=== PATIENT | male | born 1985 | race African-American/Black ===

== ENCOUNTER 2017-11-22 09:45 | Emergency (ER) | payer SELFPAY ==
[~2017-11-22 09:45] MED LIST: Gentamicin Ophth Soln 0.3% 5 ml Bottle R EYE SCH
[2017-11-22] MEDS ORDERED: Proparacaine 0.5% Opth 15 ML BOT ONE (10:23)
[2017-11-22] MEDS ORDERED: Fluorescein Opthalmic Strip ONE (10:23)
== END 2017-11-22 11:42 | disposition home or self-care (01) ==
LOC: ERS 09:45
DX: S05.01XA Injury of conjunctiva and corneal abrasion without foreign body, right eye, initial encounter (principal); X58.XXXA Exposure to other specified factors, initial encounter
CPT/HCPCS: 99283

== ENCOUNTER 2020-03-19 16:39 | Emergency (ER) | payer SELFPAY ==
[2020-03-19 17:32] LABS: #Eosinphils 0.1 thou/uL (0.0-0.7); #Lymphocytes 1.2 thou/uL (1.20-3.40); #Monocytes 0.4 thou/uL (0.11-0.59); #Neutrophils 2.5 thou/uL (1.40-6.50); %Basophils 0.5 % (0.0-1.0); %Eosinophils 1.3 % (0.0-10.0); %Lymphocytes 28.2 % (21.0-51.0); %Monocytes 10.5 % (0.0-10.0); %Neutrophils 59.6 % (42.0-75.0); Mean Corpuscular HGB CONC 31.3 g/dL (32.0-36.0); Mean Corpuscular Volume 95.7 fL (78.0-98.0); Mean Platelet Volume 6.8 fL (7.4-10.4); Platelet Count 218 thou/uL (130-400); Red Blood Cell (RBC) Count 4.99 mill/uL (4.70-6.10); White Blood Cell (WBC) Count 4.2 thou/uL (4.8-10.8)
[2020-03-19 17:52] LABS: Acetaminophen Less than 6.0 mcg/mL (10.0-30.0); Alcohol Less than 10 mg/dL (Less than 10); Salicylate Less than 8.0 mg/dL (15.0-30.0)
[2020-03-19 17:53] LABS: ALT (SGPT) 18 U/L (8-55); AST (SGOT) 26 U/L (5-34); Albumin 4.3 g/dL (3.5-5.0); Alkaline Phosphatase 76 U/L (40-110); Anion Gap 12 mmol/L (10-20); BUN (Urea Nitrogen) 9 mg/dL (8.9-20.6); Bilirubin, Total 0.7 mg/dL (0.2-1.2); CK (CPK) 798 U/L (30-200); Calc. Creatinine Clearance 0 mL/min (70-130); Calcium 9.4 mg/dL (7.8-10.44); Carbon Dioxide 25 mmol/L (22-29); Chloride 109 mmol/L (98-107); Estimated GFR-MDRD 88; Globulin 3.3 g/dL (2.4-3.5); Glucose 91 mg/dL (70-105); Potassium 3.8 mmol/L (3.5-5.1); Protein, Total 7.6 g/dL (6.0-8.3); Sodium 142 mmol/L (136-145)
[2020-03-19 18:45] LABS: Amphetamine Not Detected (NotDetected); Barbiturates Screen Not Detected (NotDetected); Benzodiazepine Screen Not Detected (NotDetected); Cocaine Metabolite Screen Detected (NotDetected); Medtox Control Line Valid? VALID (VALID); Medtox Reader # READER 4; Methadone Not Detected (NotDetected); Methamphetamine Not Detected (NotDetected); Opiate Screen Not Detected (NotDetected); Oxycodone Screen Not Detected (NotDetected); Phencyclidine (PCP) Detected (NotDetected); THC/Cannabinoid Screen Not Detected (NotDetected); Tricyclic Screen Not Detected (NotDetected)
--- NOTE | 2020-03-29 13:03 | EKG ---
Test Reason : Blood Pressure : / mmHG Vent. Rate : 080 BPM Atrial Rate : 080 BPM P-R Int : 150 ms QRS Dur : 086 ms QT Int : 384 ms P-R-T Axes : 069 064 043 degrees QTc Int : 442 ms Normal sinus rhythm Normal ECG Confirmed by DELBERT SEGURA, JULIAN ([id number]), communications editor TIMOTHY MARADIAGA ([id number]) on 03/29/2020 1:02:30 PM Referred By: Confirmed By:JULIAN MANDUJANO MD
== END 2020-03-19 19:17 | disposition home or self-care (01) ==
LOC: ERS 16:39
DX: R41.82 Altered mental status, unspecified (principal); F19.10 Other psychoactive substance abuse, uncomplicated; F17.210 Nicotine dependence, cigarettes, uncomplicated
CPT/HCPCS: 36415; 80053; 80306; 80307; 82550; 84443; 85025; 93005

== ENCOUNTER 2023-01-10 07:45 | Emergency (ER) | payer SELFPAY ==
[2023-01-10] MEDS ORDERED: Ketorolac Tromethamine 30 MG/ML VIAL ONE (08:09)
[2023-01-10] MEDS ORDERED: Dexameth. Sod Phosp. 10 MG/ML (CHEMO USE ONLY) ONE (08:09)
[2023-01-10 08:31] LABS: #Monocytes 0.6 thou/uL (0.11-0.59); %Basophils 0.4 % (0.0-1.0); %Eosinophils 0.3 % (0.0-10.0); %Lymphocytes 21.3 % (21.0-51.0); %Monocytes 8.6 % (0.0-10.0); %Neutrophils 69.1 % (42.0-75.0); Hemoglobin 13.8 g/dL (14.0-18.0); Mean Corpuscular HGB CONC 31.9 g/dL (32.0-36.0); Mean Corpuscular Volume 94.1 fl (78.0-98.0); Mean Platelet Volume 9.7 fL (7.4-10.4); Platelet Count 205 10x3/uL (130-400); RBC Distribution Width 11.9 % (11.5-14.5); White Blood Cell (WBC) Count 7.2 10x3/uL (4.8-10.8)
[2023-01-10 08:54] LABS: ALT (SGPT) 12 U/L (8-55); AST (SGOT) 19 U/L (5-34); Albumin 4.3 g/dL (3.5-5.0); Alkaline Phosphatase 63 U/L (40-110); Anion Gap 9 mmol/L (10-20); BUN (Urea Nitrogen) 9 mg/dL (8.9-20.6); Bilirubin, Total 0.6 mg/dL (0.2-1.2); Calc. Creatinine Clearance 0 mL/min (70-130); Calcium 9.2 mg/dL (7.8-10.44); Carbon Dioxide 27 mmol/L (22-29); Chloride 111 mmol/L (98-107); Estimated GFR 99; Globulin 3.1 g/dL (2.4-3.5); Glucose 93 mg/dL (70-105); Potassium 4.2 mmol/L (3.5-5.1); Protein, Total 7.4 g/dL (6.0-8.3); Sodium 143 mmol/L (136-145)
[2023-01-10] MEDS ORDERED: Iopamidol 370 76% 100 ML VIAL ONE (09:56)
[2023-01-10] MEDS ORDERED: Ampicillin/Sulbactam 3 GM in Sodium Chloride 0.9% 100 ML IVPB SCH (10:45)
== END 2023-01-10 12:40 | disposition home or self-care (01) ==
LOC: ERS 07:45
DX: J36 Peritonsillar abscess (principal); F17.210 Nicotine dependence, cigarettes, uncomplicated
CPT/HCPCS: 36415; 70491; 80053; 85025; 96365; 96375; J0295; J1100; J1885; J3490; Q9967

== ENCOUNTER 2023-04-27 18:53 | Emergency (ER) | payer OTHER ==
[~2023-04-27 18:53] MED LIST changes: -Gentamicin Ophth Soln 0.3% 5 ml Bottle R EYE SCH; +Iopamidol-370 76% 500 ML MDV (1 ML CHARGE) ONE
[2023-04-27] MEDS ORDERED: Ketorolac Tromethamine 30 MG/ML VIAL ONE (19:22)
== END 2023-04-27 21:54 | disposition home or self-care (01) ==
LOC: ERS 18:53
DX: S16.1XXA Strain of muscle, fascia and tendon at neck level, initial encounter (principal); S20.219A Contusion of unspecified front wall of thorax, initial encounter; F17.210 Nicotine dependence, cigarettes, uncomplicated; V43.62XA Car passenger injured in collision with other type car in traffic accident, initial encounter
CPT/HCPCS: 71260; 72125; 74177; 96374; J1885; Q9967

== ENCOUNTER 2024-02-01 22:49 | Emergency (ER) | payer OTHER ==
[2024-02-02] MEDS ORDERED: HYDROcodone/Acetaminophen 5/325 mg Tablet ONE (00:41)
== END 2024-02-02 00:59 | disposition home or self-care (01) ==
LOC: ERS 22:49
DX: S02.40EA Zygomatic fracture, right side, initial encounter for closed fracture (principal); S90.31XA Contusion of right foot, initial encounter; S09.93XA Unspecified injury of face, initial encounter; F17.210 Nicotine dependence, cigarettes, uncomplicated; Y04.8XXA Assault by other bodily force, initial encounter
CPT/HCPCS: 70450; 70486; 72125

== ENCOUNTER 2024-04-29 06:05 | Emergency (ER) | payer OTHER ==
[2024-04-29] MEDS ORDERED: Ketorolac Tromethamine 30 MG (1 mL) VIAL ONE (07:03)
[2024-04-29] MEDS ORDERED: Cyclobenzaprine 10 MG TAB ONE (07:03)
== END 2024-04-29 09:55 | disposition home or self-care (01) ==
LOC: ERS 06:05
DX: M25.551 Pain in right hip (principal); M25.851 Other specified joint disorders, right hip; F17.210 Nicotine dependence, cigarettes, uncomplicated
CPT/HCPCS: 96372; 99284; J1885

== ENCOUNTER 2025-05-04 11:57 | Emergency (ER) | payer OTHER ==
[2025-05-04 12:36] LABS: #Basophils 0.03 10x3/uL (0.0-0.2); #Eosinophils 0.04 10x3/uL (0.0-0.7); #Monocytes 0.30 10x3/uL (0.11-0.59); #Neutrophils 2.02 10x3/uL (1.40-6.50); %Basophils 0.8 % (0.0-1.0); %Eosinophils 1.0 % (0.0-10.0); %Lymphocytes 36.8 % (21.0-51.0); %Monocytes 7.8 % (0.0-10.0); %Neutrophils 52.8 % (42.0-75.0); Hematocrit 44.8 % (42.0-52.0); Hemoglobin 13.7 g/dL (14.0-18.0); Mean Corpuscular Hemoglobin 28.4 pg (27.0-31.0); Mean Corpuscular Volume 92.8 fL (78.0-98.0); Platelet Count 191 10x3/uL (130-400); Red Blood Cell (RBC) Count 4.83 mill/uL (4.70-6.10); White Blood Cell (WBC) Count 3.83 10x3/uL (4.8-10.8)
[2025-05-04 12:48] LABS: ALT (SGPT) 16 U/L (Less than 45); AST (SGOT) 28 U/L (11-34); Albumin 4.2 g/dL (3.1-4.5); Alkaline Phosphatase 70 U/L (40-110); Anion Gap 10 mmol/L (10-20); BUN (Urea Nitrogen) 10 mg/dL (8.9-20.6); Bilirubin, Total 0.4 mg/dL (0.3-1.2); Calc. Creatinine Clearance 0 mL/min (70-130); Calcium 8.8 mg/dL (7.8-10.44); Carbon Dioxide 27 mmol/L (22-29); Chloride 108 mmol/L (98-107); Globulin 3.3 g/dL (2.4-3.5); Glucose 92 mg/dL (70-105); Potassium 4.9 mmol/L (3.5-5.1); Sodium 140 mmol/L (136-145)
== END 2025-05-04 14:20 | disposition home or self-care (01) ==
LOC: ERS 11:57
DX: R07.89 Other chest pain (principal); F17.210 Nicotine dependence, cigarettes, uncomplicated
CPT/HCPCS: 71045; 80053; 84484; 85025; 93005; 96374